=== PATIENT | male | born 1950 | race Caucasian/White ===

== ENCOUNTER → 2016-12-16 | Day surgery (SDC) | payer OTHER ==
[~2016-12-16] MED LIST: ACETAMINOPHEN 1000 MG/100 ML VIAL IV ONE; BUPIVACAINE/EPINEPHRINE 0.5% 50 ML VIAL ONE; KETOROLAC TROMETHAMINE 30 MG/ML (IVP) VIAL IV PUSH ONE; LACTATED RINGER'S 1000 ML INJ 1,000 ML ONE; LIDOCAINE 1%/EPINEPHrine 1:100,000 SOLN 20 ML VIAL ONE; MIDAZOLAM HCL 2 MG/2 ML VIAL ONE; ONDANSETRON HCL 4 MG/2 ML VIAL IV PUSH ONE; PROPOFOL 200 MG/20 ML AMP IV ONE
--- NOTE | 2016-12-16 10:57 | MP ---
cc: JUNIOR SAUL DATE OF SURGERY 12/16/2016 PREOPERATIVE DIAGNOSIS Lipoma right upper back. POSTOPERATIVE DIAGNOSIS Lipoma right upper back. PROCEDURE Excision of lipoma right upper back. SURGEON Junior Saul MD [employer] ADMINISTRATOR Collette Devine MS3 ANESTHESIA Local/MAC OPERATIVE PROCEDURE The patient brought to the operating room. After satisfactory sedation by anesthesia, was positioned in the left lateral decubitus position. The upper back was then prepped and draped in the usual sterile fashion. A skin incision was made in Juju's lines after infiltrating 1% lidocaine with epinephrine. The incision was carried down sharply through the subcutaneous tissue with the cautery being used for hemostasis. Incision was deepened then to the area of the lipoma which was dissected free with the lipoma, as well as blunt dissection. After completely dissecting the lipoma from the surrounding tissues, it was sent for permanent pathology. Hemostasis was strictly assured with the cautery after which the subcutaneous tissue was closed with interrupted 3-0 Vicryl sutures and the skin closed with interrupted 4-0 Monocryl subcuticular stitches. Steri-Strips and a sterile dressing were placed. The patient was then awakened and taken from the operating room, in satisfactory condition, having tolerated the procedure without problem. Estimated blood loss was less than 5 mL. The instrument, sponge count and needle counts were reported as being correct x2 at the end of the procedure. MD ADRY Ron/JAVIER /10:45 AM /10:49 AM
== END | disposition home or self-care (01) ==
LOC: ESDC 08:09
PROVIDERS: ATTEND Surgery
DX: D17.1 Benign lipomatous neoplasm of skin and subcutaneous tissue of trunk (principal)
CPT/HCPCS: 00300; 21931; 88304; J0131; J1885; J2250; J2405; J3010; J7120